=== PATIENT | male | born 1960 | race Caucasian/White ===

== ENCOUNTER 2024-02-03 10:22 | Day surgery (SDC) | payer MEDICARE ==
[~2024-02-03] VITALS: Ht 172.7 cm; Wt 68.0 kg
[~2024-02-03 10:22] MED LIST: Lactated Ringer's 1,000 ML IV ONE; Lidocaine HCl/Pf 1% 5 ML VIAL ONE; propofoL 40 ML IV ONE
[2024-02-03] MEDS ORDERED: CENTRUM SILVER1 EAC2 (11:16)
[2024-02-03] MEDS ORDERED: GLUCHON (11:17)
[2024-02-03] MEDS ORDERED: TRIM100 (11:17)
[2024-02-03] MEDS ORDERED: propofoL 20 ML IV ONE (11:50)
[2024-02-03] MEDS ORDERED: Lactated Ringer's 1,000 ML IV ONE (11:54)
[2024-02-03] MEDS ORDERED: Lidocaine HCl 2% Jelly 120MG/6ML SYR (20MG PER ML) ONE (12:10)
[2024-02-03 13:13] VITALS: BP 116/83
== END 2024-02-03 13:12 | disposition home or self-care (01) ==
LOC: ORSCSDS 10:22
DX: K62.5 Hemorrhage of anus and rectum (principal); K51.30 Ulcerative (chronic) rectosigmoiditis without complications; K62.89 Other specified diseases of anus and rectum; K52.89 Other specified noninfective gastroenteritis and colitis; K59.00 Constipation, unspecified; R63.4 Abnormal weight loss
CPT/HCPCS: 88305; A9270; J2003; J2704; J7120

== ENCOUNTER 2024-03-22 02:45 | Day surgery (SDC) | payer MEDICARE ==
[~2024-03-22] VITALS: Wt 66.5 kg
[~2024-03-22 02:45] MED LIST changes: +CENTRUM SILVER1 EAC2; +GLUCHON; +Infliximab-DYYB 350 MG in NS 250 ML IV SCH; -Lactated Ringer's 1,000 ML IV ONE; -Lidocaine HCl/Pf 1% 5 ML VIAL ONE; +TRIM100; -propofoL 40 ML IV ONE
[2024-03-22] MEDS ORDERED: Acetaminophen 325 MG TABLET PO SCH (07:05)
[2024-03-22] MEDS ORDERED: Hydrocortisone Sod Succinate 100 MG Vial IV SCH (07:05)
[2024-03-22] MEDS ORDERED: DiphenhydrAMINE HCL 25 MG Cap PO SCH (07:05)
[2024-03-22 09:18] VITALS: BP 135/87
[2024-03-22 10:30] VITALS: BP 110/70
[2024-03-22 10:44] VITALS: BP 110/85
[2024-03-22 11:01] VITALS: BP 115/82
[2024-03-22 12:07] VITALS: BP 129/78
[2024-03-22] MEDS ORDERED: PREDNISONE PO (13:03)
[2024-03-22] MEDS ORDERED: LOPERAMIDE212 PO (13:04)
[2024-03-22] MEDS ORDERED: GLUCHON PO (13:05)
[2024-03-22] MEDS ORDERED: MULVITA PO (13:06)
== END 2024-03-22 12:10 | disposition home or self-care (01) ==
LOC: ATC 02:45
DX: K51.90 Ulcerative colitis, unspecified, without complications (principal); Z79.899 Other long term (current) drug therapy
CPT/HCPCS: 96413; 96415; A9270; J7050; Q5103

== ENCOUNTER 2024-04-12 01:26 | Day surgery (SDC) | payer MEDICARE ==
[~2024-04-12] VITALS: Wt 72.7 kg
[~2024-04-12 01:26] MED LIST changes: +GLUCHON PO; -Infliximab-DYYB 350 MG in NS 250 ML IV SCH; +LOPERAMIDE212 PO; +MULVITA PO; +PREDNISONE PO
[2024-04-12] MEDS ORDERED: Infliximab-DYYB 350 MG in NS 250 ML IV SCH (06:00)
[2024-04-12] MEDS ORDERED: DiphenhydrAMINE HCL 25 MG Cap PO SCH (07:05)
[2024-04-12] MEDS ORDERED: Hydrocortisone Sod Succinate 100 MG Vial IV SCH (07:05)
[2024-04-12] MEDS ORDERED: Acetaminophen 325 MG TABLET PO SCH (07:05)
[2024-04-12 07:36] VITALS: BP 136/91
== END 2024-04-12 10:31 | disposition home or self-care (01) ==
LOC: ATC 01:26
DX: K51.90 Ulcerative colitis, unspecified, without complications (principal)
CPT/HCPCS: 96375; 96413; 96415; A9270; J1720; J7050; Q5103

== ENCOUNTER 2024-05-24 00:19 | Day surgery (SDC) | payer MEDICARE ==
[2024-05-24] MEDS ORDERED: Infliximab-DYYB 350 MG in NS 250 ML IV SCH (06:00)
[2024-05-24] MEDS ORDERED: DiphenhydrAMINE HCL 25 MG Cap PO PRN (07:20)
[2024-05-24] MEDS ORDERED: Acetaminophen 325 MG TABLET PO PRN (07:20)
[2024-05-24] MEDS ORDERED: Hydrocortisone Sod Succinate 100 MG Vial IV SCH (07:20)
[2024-05-24 09:20] VITALS: BP 141/90
== END 2024-05-24 11:43 | disposition home or self-care (01) ==
LOC: ATC 00:19
DX: K51.90 Ulcerative colitis, unspecified, without complications (principal)
CPT/HCPCS: 96375; 96413; 96415; A9270; J1720; J7050; Q5103

== ENCOUNTER 2024-07-12 00:50 | Day surgery (SDC) | payer MEDICARE ==
[~2024-07-12] VITALS: Wt 70.3 kg
[~2024-07-12 00:50] MED LIST changes: +Infliximab-DYYB 350 MG in NS 250 ML IV SCH
[2024-07-12] MEDS ORDERED: Acetaminophen 325 MG TABLET PO SCH (08:40)
[2024-07-12] MEDS ORDERED: DiphenhydrAMINE HCL 25 MG Cap PO SCH (08:40)
[2024-07-12] MEDS ORDERED: Hydrocortisone Sod Succinate 100 MG Vial IV SCH (08:40)
[2024-07-12 09:00] VITALS: BP 146/97
--- NOTE | 2024-07-12 09:10 | NUR ---
Pt declines pre meds for his inflectra infusion today.
== END 2024-07-12 11:33 | disposition home or self-care (01) ==
LOC: ATC 00:50
DX: K51.90 Ulcerative colitis, unspecified, without complications (principal); K59.00 Constipation, unspecified; Z79.899 Other long term (current) drug therapy
CPT/HCPCS: 96413; 96415; J7050; Q5103